=== PATIENT | male | born 1975 | race Caucasian/White ===

== ENCOUNTER 2018-02-01 09:13 | Emergency (ER) | payer BC ==
[~2018-02-01] VITALS: Ht 172.7 cm; Wt 99.8 kg
[2018-02-01 09:20] VITALS: BP_SYST 127
[2018-02-01] MEDS ORDERED: PREDNISONE 20 MG TABLET PO ONE (09:45)
[2018-02-01 10:01] LABS: BASOPHILS # (AUTO) 0.1 K/uL (0.0-0.2); BASOPHILS % (AUTO) 1.5 % (0.0-2.0); EOSINOPHILS # (AUTO) 0.2 K/uL (0.0-0.4); EOSINOPHILS % (AUTO) 2.4 % (0.0-4.0); HEMATOCRIT 46.3 % (36-54); HEMOGLOBIN 15.9 g/dL (14.0-18.0); LYMPHOCYTES # (AUTO) 2.1 K/uL (1.0-5.5); LYMPHOCYTES % (AUTO) 32.1 % (20.5-51.5); MEAN CORPUSCULAR HEMOGLOBIN 31 pg (27-31); MEAN CORPUSCULAR HGB CONC 34 % (32-36); MEAN CORPUSCULAR VOLUME 91 fL (79.0-98.0); MONOCYTES # (AUTO) 0.5 K/uL (0.0-1.0); MONOCYTES % (AUTO) 7.9 % (1.7-9.3); NEUTROPHILS # (AUTO) 3.8 K/uL (1.8-7.7); NEUTROPHILS % (AUTO) 56.1 % (40.0-70.0); PLATELET COUNT (AUTO) 202 K/uL (130-430); RED CELL DISTRIBUTION WIDTH 11.9 % (9.0-15.0); WHITE BLOOD COUNT (AUTO) 6.7 K/uL (4.8-10.8)
[2018-02-01 10:08] LABS: CALCIUM 9.3 mg/dL (8.4-11.0); CREATININE 0.89 mg/dL (0.55-1.30); POTASSIUM 4.2 mmol/L (3.5-5.1)
[2018-02-01 10:13] LABS: ALBUMIN 4.4 g/dL (3.4-4.8); TOTAL BILIRUBIN 0.7 mg/dL (0.0-1.0)
[2018-02-01 10:30] VITALS: BP_SYST 124
== END 2018-02-01 10:30 | disposition home or self-care (01) ==
LOC: SED 09:13
DX: M25.50 Pain in unspecified joint (principal)
CPT/HCPCS: 36415; 80053; 85025; 99284; J7512

== ENCOUNTER 2020-02-06 08:44 | Emergency (ER) | payer BC ==
[~2020-02-06] VITALS: Ht 172.7 cm; Wt 96.6 kg
[2020-02-06 08:55] VITALS: BP_SYST 125
--- NOTE | 2020-02-06 09:00 | NUR ---
Patient to ER bed 4 to gown for evaluation. Side rails up. Report given to RAVI Rojas.
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
--- NOTE | 2020-02-06 09:15 | NUR ---
ER at bedside examining patient.
[2020-02-06 09:35] VITALS: BP_SYST 125
--- NOTE | 2020-02-06 09:35 | NUR ---
Patient given written and verbal discharge instructions and verbalizes understanding. ER MD discussed with patient the results and treatment provided. Patient in stable condition. ID arm band removed. Pt given sling for R arm. Patient educated on pain management and to follow up with PMD. Pain Scale 4/10 tolerable. Opportunity for questions provided and answered. Medication side effect fact sheet provided.
== END 2020-02-06 09:35 | disposition home or self-care (01) ==
LOC: SED 08:44
DX: S43.51XA Sprain of right acromioclavicular joint, initial encounter (principal); V18.4XXA Pedal cycle driver injured in noncollision transport accident in traffic accident, initial encounter; Y93.55 Activity, bike riding; Y92.89 Other specified places as the place of occurrence of the external cause; Y99.8 Other external cause status
CPT/HCPCS: 73030; 99283

== ENCOUNTER 2021-09-18 10:11 | Emergency (ER) | payer BC ==
[~2021-09-18] VITALS: Ht 172.7 cm; Wt 88.5 kg
[2021-09-18 10:15] VITALS: BP_SYST 131
[2021-09-18 12:36] VITALS: BP_SYST 123
== END 2021-09-18 12:38 | disposition home or self-care (01) ==
LOC: SED 10:11
DX: S46.812A Strain of other muscles, fascia and tendons at shoulder and upper arm level, left arm, initial encounter (principal); M25.512 Pain in left shoulder; V28.0XXA Motorcycle driver injured in noncollision transport accident in nontraffic accident, initial encounter; Y93.89 Activity, other specified; Y92.89 Other specified places as the place of occurrence of the external cause; Y99.8 Other external cause status
CPT/HCPCS: 73030; 99283